=== PATIENT | male | born 1945 | race Caucasian/White ===

== ENCOUNTER 2018-01-14 05:24 | Day surgery (SDC) | payer MEDICARE, MEDICAID ==
[~2018-01-14] VITALS: Ht 167.6 cm; Wt 79.8 kg
[~2018-01-14 05:24] MED LIST: ATOR-2 PO; BENA40TA3 PO; CLON0.2T PO; CLOP75TA16 PO; DUTA0.5C2 PO; GABA-531 PO; GLIP10TA10 PO; METF500T6 PO; MIRT15TA PO; NIFE30TA94 PO
[2018-01-14 07:03] LABS: BASOPHILS % 0.4 % (0.0-2.0); EOSINOPHILS % 2.3 % (0.0-5.0); LYMPHOCYTES % 21.9 % (20.0-50.0); MEAN CORPUSCULAR HEMOGLOBIN 30.7 pg (28.0-32.0); MEAN CORPUSCULAR VOLUME 89.7 fL (80.0-94.0); MEAN PLATELET VOLUME 7.6 fl (7.4-10.4); MONOCYTES % 8.9 % (2.0-8.0); NEUTROPHILS % 66.5 % (40.0-76.0); PLATELET 249 x1000/uL (130-400); RED BLOOD CELL COUNT 4.24 mill/uL (4.7-6.1)
[2018-01-14 07:08] LABS: PARTIAL THROMBOPLASTIN TIME 26.5 sec (23.4-31.0); PROTHROMBIN TIME 10.7 sec (9.4-11.6)
[2018-01-14 07:17] LABS: CHLORIDE 110 mEq/L (98-107)
[2018-01-14] MEDS ORDERED: BUPIVACAINE HCL 0.5% (5MG/ML) 50ML ONE (07:19)
[2018-01-14] MEDS ORDERED: SKIN ADHESIVE 0.7 GM EA TOP ONE (07:19)
[2018-01-14] MEDS ORDERED: FENTANYL CITRATE/PF 50MCG/ML 2ML VIAL ONE ×2 (07:36→08:35)
[2018-01-14] MEDS ORDERED: ROCURONIUM BROMIDE 10MG/ML VIAL 5ML IV ONE (07:36)
[2018-01-14] MEDS ORDERED: NEOSTIGMINE METHYLSULFATE 1MG/ML 10 ML VIAL ONE (07:36)
[2018-01-14] MEDS ORDERED: PROPOFOL 200MG/20ML VIAL IV ONE (07:36)
[2018-01-14] MEDS ORDERED: CEFAZOLIN SODIUM 1000MG/VIAL ONE (07:37)
[2018-01-14] MEDS ORDERED: LIDOCAINE HCL/PF 1% 10 MG/ML 5ML VIAL ONE (07:37)
[2018-01-14] MEDS ORDERED: PHENYLEPHRINE HCL 10 MG/ML 1ML (IV VIAL) IV ONE (07:37)
[2018-01-14] MEDS ORDERED: GLYCOPYRROLATE 0.2 MG/ML 2ML VIAL ONE (07:37)
[2018-01-14] MEDS ORDERED: EPHEDRINE SULFATE 50MG/ML VIAL ONE (07:37)
[2018-01-14] MEDS ORDERED: SUCCINYLCHOLINE CHLORIDE 200MG/10ML VIAL IV ONE (07:37)
[2018-01-14] MEDS ORDERED: ONDANSETRON HCL 4MG/2ML VIAL ONE (07:37)
[2018-01-14] MEDS ORDERED: MIDAZOLAM HCL 2 MG/2 ML VIAL ONE (07:37)
[2018-01-14] MEDS ORDERED: SODIUM CHLORIDE 0.9% 1,000 ML IV ONE (09:07)
[2018-01-14] MEDS ORDERED: ONDANSETRON HCL 4MG/2ML VIAL IV PRN (09:15)
[2018-01-14] MEDS ORDERED: MEPERIDINE HCL/PF 25MG/ML CPJ IV PRN (09:15)
[2018-01-14] MEDS: HYDROMORPHONE HCL/PF 2MG/ML CPJ IV PRN ×3 (10:15→10:40)
[2018-01-14 10:40] VITALS: BP 147/71
== END 2018-01-14 11:51 | disposition home or self-care (01) ==
LOC: OR 05:24
PROVIDERS: ATTEND Specialist
DX: K66.0 Peritoneal adhesions (postprocedural) (postinfection) (principal); K76.89 Other specified diseases of liver; I10 Essential (primary) hypertension; E11.9 Type 2 diabetes mellitus without complications; F32.9 Major depressive disorder, single episode, unspecified; Z98.890 Other specified postprocedural states; Z88.5 Allergy status to narcotic agent; Z98.49 Cataract extraction status, unspecified eye; Z79.84 Long term (current) use of oral hypoglycemic drugs; Z79.899 Other long term (current) drug therapy
CPT/HCPCS: 36415; 44180; 80048; 82962; 85025; 85610; 85730; G0168; J0330; J0690; J1170; J2250; J2370; J2405; J2710; J3010; J3490; J7030; J2704